=== PATIENT | male | born 2000 | race Caucasian/White ===

== ENCOUNTER 2023-06-07 11:50 | Emergency (ER) | payer BC, SELFPAY ==
[2023-06-07 11:51] VITALS: BP 136/68; PULSE 88; RESP 18; TEMP 36.6; O2SAT 98; BMI 35.4
--- NOTE | 2023-06-07 12:09 | CT_ITS ---
PROCEDURE INFORMATION: Exam: CT Lumbar Spine Without Contrast Exam date and time: 06/07/2023 12:47 PM Age: 23 years old Clinical indication: Low back pain; Additional info: Low back pain after weightlifting, rad down R leg TECHNIQUE: Imaging protocol: Computed tomography of the lumbar spine without contrast. Total images: 354 Radiation optimization: All CT scans at this facility use at least one of these dose optimization techniques: automated exposure control; mA and/or kV adjustment per patient size (includes targeted exams where dose is matched to clinical indication); or iterative reconstruction. REPORTING DATA: Count of CT and Cardiac NM exams in prior 12 months: This patient has received 0 known CTs and 0 known cardiac nuclear medicine studies in the 12 months prior to the current study. COMPARISON: No relevant prior studies available. FINDINGS: Bones/joints: No acute fracture. Normal alignment. No significant disc bulge or herniation. No severe spinal canal stenosis. No significant neural foraminal narrowing. Soft tissues: Unremarkable. IMPRESSION: No acute findings.
--- NOTE | 2023-06-07 12:34 | [facility].EDGENADL ---
Discharge Plan Disposition Patient Disposition: Home, Self-Care Condition: Good Prescriptions Prescriptions: New naproxen 500 mg tablet 500 mg PO Q8H PRN (Reason: pain) Qty: 20 0RF methocarbamol 750 mg tablet 750 mg PO Q8H PRN (Reason: pain) Qty: 20 0RF Referrals Follow up/Referrals: Gena Vazquez PA [Primary Care Provider] - See instructions Activity Restrictions/Add. Instructions Additional Instructions/Restrictions: You were evaluated in the emergency department today. Please follow-up with your primary care provider. claims support specialist your prescriptions at the pharmacy and take as needed for pain. You may also take Tylenol in addition to these. Return to the emergency department for any new or worsening symptoms. Clinical Impressions Clinical Impression: Strain of lumbar region Stand Alone Forms Stand Alone Forms: Work/School Release Instructions Patient Instructions: DI for Low Back Pain Discharge ED Provider: Spring Medrano General Adult HPI General Chief complaint: Back Pain/Injury Stated complaint: back pain, no accident Time Seen by Provider: 06/07/23 12:03 Mode of Arrival: Ambulatory Source of Information: Patient Limitations: No Limitations Description of Symptoms (Recalled from ER Triage Doc. by RN): c/o lower back pain that goes down both legs but more to the right. The pain gets worse with movement. PT states he has been lifting weights for the past 5-6 years, he was lifting last night when the pain started. History of Present Illness HPI narrative: Patient is a 23-year-old male who denies significant past medical history presenting to the emergency department for evaluation with low back pain radiating down his right side. He states that he initially felt a twinge in his back while working out about a week ago, however yesterday it acutely worsened. He states that he has significant pain with any sort of movement. He denies any numbness, tingling, saddle anesthesia, incontinence, or other concerns. 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 He took ibuprofen at home without good improvement last night. Related Data Previous Rx's Medication Instructions Recorded methocarbamol 750 mg tablet 750 mg PO Q8H PRN pain #20 tabs 06/07/23 naproxen 500 mg tablet 500 mg PO Q8H PRN pain #20 tabs 06/07/23 Allergies Allergy/AdvReac Type Severity Reaction Status Date / Time No Known Allergies Allergy Verified 06/07/23 12:05 [facility] Disclaimer: The information contained in this section may have been updated after the patient was seen, as this information can be updated by other users. Social History Smoking Status: Never smoker alcohol intake: never current occupational status: employed Travel in the last 8 weeks: None ROS Obtained: Yes All systems reviewed & no additional complaints except as documented Physical Exam General General appearance: alert and in no apparent distress Head Head exam: atraumatic and normocephalic Eye Eye exam: Present normal appearance, PERRL and EOMI ENT ENT exam: Present normal exam, normal oropharynx, mucous membranes moist and normal external ear exam Neck Neck exam: Present normal inspection, full ROM and trachea midline; Absent tenderness Chest Chest inspection: Present normal inspection and symmetric chest wall rise; Absent tenderness Respiratory Respiratory exam: Present normal lung sounds bilaterally; Absent respiratory distress, wheezes, stridor or accessory muscle use Cardiovascular Cardiovascular exam: Present regular rate and normal rhythm Abdominal Exam Abdominal exam: Present soft; Absent distention, tenderness or guarding Extremities Exam Extremities exam: Present normal inspection, full ROM and normal capillary refill; Absent tenderness or edema Back Exam Back exam: Present normal inspection and full ROM; Absent tenderness Neurological E
--- NOTE | 2023-06-07 12:35 | PC.NURSE ---
Rounded on pt no needs at this time, call light at bs
[2023-06-07 13:30] VITALS: BP 129/78; PULSE 84; RESP 20; TEMP 36.6; O2SAT 98
== END 2023-06-07 13:30 | disposition home or self-care (01) ==
PROVIDERS: Emergency Provider Emergency Medicine; PCP Physician Assistant Surgical
DX: S39.012A Strain of muscle, fascia and tendon of lower back, initial encounter (principal); X50.9XXA Other and unspecified overexertion or strenuous movements or postures, initial encounter
CPT/HCPCS: 72131; 96374; 99284